=== PATIENT | female | born 1975 | race Caucasian/White ===

== ENCOUNTER → 2016-09-20 | Day surgery (SDC) | payer OTHER ==
[2016-09-19 10:12] VITALS: Ht 161.9 cm; Wt 79.5 kg
[~2016-09-20] VITALS: Ht 161.9 cm; Wt 79.5 kg
[~2016-09-20] MED LIST: ACET-1311 PO; BACTRIM PO; CHOL400C7 PO; CLON0.5T3 PO; FAMO20TA12 PO; FERR1TAB13 PO; FLUO20CA35 PO; FLUT0.15 NAE; INSDGIPEN SC; INSU100I2 SC; INSU1INJ23 SC; IPRA0.06 NAE; ISAV1CAP2 PO; LIDOCAINE HCL 2% 2 ML VIAL (20MG/ML) ONE; MAGN400T6 PO; METO25TA56 PO; MONT1TAB3 PO; MYCO250C26 PO; NRN600 PO; PANC6000 PO; PRED-301 PO; PROC1TAB5 PO; PROPOFOL IV EMULSION 10 MG/ML 20 ML VIAL IV ONE; RRALBUTNEB INH; SENN1TAB86 PO; SODIUM CHLORIDE 0.9% 500ML 500 ML IV ONE; TACR1CAP PO; TACR5CAP PO; TAPE1TAB10 PO; VLC450 PO; [UNRECOGNIZED DRUG - CODE] INH
--- NOTE | 2016-09-20 11:19 | Endo History and Physical ---
History & Physical Date of Service: September 20, 2016. Chief Complaint: aspiration Referring Physician: Phoebe Roman; Ese Jacobs History of Present Illness aspiration Past Surgical History Hx Cardiac Surgery: No Hx Internal Defibrillator: No Hx Pacemaker: No Hx Abdominal Surgery: Yes (RICHARD, PARTIAL HYSTER) Hx of Implantable Prosthesis: No Hx Post-Op Nausea and Vomiting: No Hx Cancer Surgery: No Hx Thoracic Surgery: Yes (BLT LUNG TRANSPLANT, MULTIPLE BRONCHOSCOPIES) Hx Orthopedic: Yes (LOW BACK SURGERY X2, MULTIPLE BACK INJECTIONS) Hx Urinary Tract Surgery: No Family History Polyp Social History Smoking Status: Never Smoker Hx Substance Use: No Hx Alcohol Use: No Allergies Coded Allergies: Amoxicillin (Verified Allergy, Intermediate, RASH, 09/19/16) Cephalexin (Verified Allergy, Intermediate, RASH, 09/19/16) Adhesives (Verified Adverse Reaction, Mild, SKIN IRRITATION, 09/19/16) Current Medications Reported Home Medications Medications Dose Route/Sig Max Daily Dose Days Date Category Dose Instructions Vitamin D 400 Iu (Cholecalciferol) 400 Unit Cap 400 Inter.unit PO QAM 09/19/16 Reported Cresemba (Isavuconazonium Sulfate) 186 Mg Cap 2 Cap PO QAM 09/19/16 Reported Nucynta Er (Tapentadol Hcl) 100 Mg Tab 1 Tab PO BID 09/19/16 Reported F/U WITH PAIN MANAGEMENT 09-19-16 Humulin N Kwikpen (Insulin Isophane (Human)) 100 Unit/Ml Inj 9 Units SC QAM 09/19/16 Reported Humalog Kwikpen (Insulin Lispro (Human)) 100 Unit/Ml Inj 1 Dose SC TIDM 09/19/16 Reported 20 UNITS AM 8-12 UNITS NOON 9 UNITS PM Lantus Solostar (Insulin Glargine) 100 Unit/Ml Inj 23 Units SC QAM 09/19/16 Reported Mag-Ox (Magnesium Oxide) 400 Mg Tab 2 Tabs PO NOON 09/19/16 Reported Singulair (Montelukast Sodium) 10 Mg Tab 10 Mg PO QPM 09/19/16 Reported Ipratropium [place] (Ipratropium [place] (Nasal)) 0.06 % Spr 2 Sprays SUKHJINDER BID 09/19/16 Reported Flonase Allergy Relief (Fluticasone Propionate (Nasal)) 50 Mcg/Act Spr 2 Sprays SUKHJINDER BID 09/19/16 Reported Compazine (Prochlorperazine Maleate) 10 Mg Tab 10 Mg PO Q6H PRN 09/19/16 Reported Abelcet (Amphotericin B) 5 Mg/Ml Susp 5 Ml INH BID 09/19/16 Reported Albuterol Sulfate (Albuterol Sulf) 2.5 Mg/0.5 Ml Nebu 1 Dose INH BID 09/19/16 Reported Klonopin (Clonazepam) 0.5 Mg Tab 0.5 Tab PO BID 09/19/16 Reported Sennalax-S (Sennosides-Docusate Sodium) 1 Tab Tab 2 Tab PO HS 09/19/16 Reported Kp Ferrous Sulfate (Ferrous Sulfate) 325 Mg Tab 1 Tab PO QAM 09/19/16 Reported Valcyte (Valganciclovir) 450 Mg Tab 2 Tabs PO QAM 09/19/16 Reported Gabapentin 600 Mg Tab 1 Tab PO TID 09/19/16 Reported Lopressor (Metoprolol Tartrate) 25 Mg Tab 0.25 Tab PO BID 09/19/16 Reported Prednisone 5 Mg Tab 3 Tabs PO QAM 09/19/16 Reported [Bactrim] Unknown Strength Unknown Dose PO MWF 09/19/16 Reported Famotidine 20 Mg Tab 1 Tab PO BID 09/19/16 Reported Prograf (Tacrolimus) 5 Mg Cap 5 Mg PO BID 09/19/16 Reported Prograf (Tacrolimus) 1 Mg Cap 4 Tabs PO BID 09/19/16 Reported Tylenol (Acetaminophen) 325 Mg Tab 650 Mg PO Q4H PRN 09/19/16 Reported Cellcept (Mycophenolate Mofetil) 250 Mg Cap 3 Cap PO BID 09/19/16 Reported Prozac (Fluoxetine HCl) 20 Mg Cap 2 Tabs PO QAM 09/19/16 Reported Creon (Pancrelipase (Lipase-Protease-) 1 Cap Cap 2 Cap PO TID 09/19/16 Reported Vital Signs Weight (Kilograms): 79.55 Height (Feet): 5 Height (Inches): 3.75 Physical Exam General Appearance: WD/WN, no apparent distress Assessment and Plan EGD with DUMONT today
--- NOTE | 2016-09-20 11:43 | GI REPORT ---
Procedure Date: 09/20/2016 10:58 AM Procedure: Upper GI endoscopy Indications: Esophageal reflux symptoms that persist despite appropriate therapy; CF s/p bilateral lung transplant; recent drop in PFT's; UGI with high risk for aspiration; not currently on any medication for GERD Medicines: Monitored Anesthesia Care Complications: No immediate complications. Estimated blood loss: None. Estimated Blood Loss: Estimated blood loss: none. Procedure: Pre-Anesthesia Assessment: - Prior to the procedure, a History and Physical was performed, and patient medications, allergies and sensitivities were reviewed. The patient's tolerance of previous anesthesia was reviewed. - The risks and benefits of the procedure and the sedation options and risks were discussed with the patient. All questions were answered and informed consent was obtained. - Patient identification and proposed procedure were verified prior to the procedure by the physician and the nurse. The procedure was verified in the pre-procedure area in the procedure room. - Mental Status Examination: alert and oriented. Airway Examination: normal oropharyngeal airway and neck mobility. Respiratory Examination: clear to auscultation. CV Examination: normal. Abdominal Examination: bowel sounds present, abdomen soft and non-tender, no masses or organomegaly noted. - ASA Grade Assessment: III - A patient with severe systemic disease. After obtaining informed consent, the endoscope was passed under direct vision. Throughout the procedure, the patient's blood pressure, pulse, and oxygen saturations were monitored continuously. The Scope was introduced through the mouth, and advanced to the second part of duodenum. The upper GI endoscopy was accomplished without difficulty. The patient tolerated the procedure well. Findings: The examined esophagus was normal. The DUMONT capsule with delivery system was introduced through the mouth and advanced into the esophagus, such that the DUMONT pH capsule was positioned 32 cm from the incisors, which was 6 cm proximal to the EG junction. Suction was applied to the well of the DUMONT pH capsule to suck in the adjacent mucosa of the esophagus using the external vacuum pump set at a minimum vacuum pressure of 550 mmHg for 60 seconds. The DUMONT pH capsule was then deployed by depressing the plunger on top of the handle to advance the locking pin into the mucosa, thereby attaching the capsule to the esophagus. The plunger was then rotated a quarter turn clockwise to release the capsule from the delivery system. The delivery system was then withdrawn. Endoscopy was utilized for probe placement and diagnostic evaluation. The stomach was normal. The examined duodenum was normal. Impression: - Normal esophagus. - Normal stomach. - Normal examined duodenum. - The DUMONT pH capsule was positioned 32 cm from the naris, which was 6 cm proximal to the EG junction. Recommendation: - Follow DUMONT instructions. Report to follow. - Return to referring physician as previously scheduled. - Discharge patient to home. Daphne Estrada D.O. Daphne Estrada, 09/20/2016 11:42:42 AM This report has been signed electronically. Note Initiated On: 09/20/2016 10:58 AM I attest to the content of the Intraoperative Record and orders documented therein, exceptions below
--- NOTE | 2016-09-20 11:45 | Discharge Instructions ---
Endoscopy Patient Instructions Date / Procedure(s) Performed September 20, 2016. EGD Allergy Information Coded Allergies: Amoxicillin (Verified Allergy, Intermediate, RASH, 09/19/16) Cephalexin (Verified Allergy, Intermediate, RASH, 09/19/16) Adhesives (Verified Adverse Reaction, Mild, SKIN IRRITATION, 09/19/16) Discharge Date / Findings September 20, 2016. normal EGD; DUMONT placed Medication Instructions Restart Stopped Medication(s): OK to resume all medications as above Provider Instructions Activity Restrictions - No exercising or heavy lifting for 24 hours. - Do not drink alcohol the day of the procedure. - Do not drive a car or operate machinery until the day after the procedure. - Do not make any important decisions or sign important papers in 24 hours after the procedure. Following Day: - Return to full activity which may include returning to work/school. Diet Start your diet with liquids and light foods (jello, soup, juice, toast). Then eat your usual diet if not nauseated. Treatment For Common After Affects For mild abdominal pain, bloating, or excessive gas: - Rest - Eat lightly - Lie on right side Follow-Up Information Follow-up with Phoebe JANSEN as scheduled Anesthesia Information What You Should Know You have had a procedure that required some medicine to reduce anxiety and discomfort. This treatment is called moderate sedation. After receiving the treatment, you may be sleepy, but you will be able to breathe on your own. The effects of the treatment may last for several hours. Follow these instructions along with Activity/Diet recommendations noted above: * Do NOT do anything where dizziness or clumsiness would be dangerous. * Rest quietly at home today, then you can be up and about tomorrow. * Have a responsible person stay with you the rest of today. * You may have had an I.V. today. If so, you may take the dressing off later today. Recommendations Call your doctor if: * Trouble breathing * Continuous vomiting for more than 24 hours * Temperature above 101 degrees * Severe abdominal pain or bloating * Pain not relieved by pain medicine ordered * There is increased drainage or redness from any incision * A large amount of rectal bleeding greater than 2-3 tablespoons. (If you had a polyp/s removed or have hemorrhoids, a small amount of blood - from the rectum is to be expected.) * You have any unanswered questions or concerns. IN THE EVENT OF A SERIOUS EMERGENCY, GO TO THE NEAREST EMERGENCY ROOM Your discharge instructions were prepared by provider Daphne Estrada. Patient Instructions Signature Page [facility] Patient (or Guardian) Signature/Date: I have read and understand the instructions given to me by my caregivers. Caregiver/RN/Doctor Signature/Date: The above-named patient and/or guardian has received patient instructions on this date. + Original Patient Signature Page (only) stays with chart. Please make copy for patient.
[2016-09-20 12:12] VITALS: BP 126/82; PULSE 66; O2SAT 98
--- NOTE | 2016-09-20 12:14 | Anesthesiology Progress Note ---
Anesthesia Post Op Note Date & Time September 20, 2016 at 12:14 Vital Signs Pain Intensity: 0 Vital Signs Past 12 Hours Date Time Temp Pulse Resp B/P Pulse Ox O2 Delivery O2 Flow Rate FiO2 09/20/16 11:57 62 20 113/67 96 Room Air 09/20/16 11:42 66 24 98/51 96 Room Air 09/20/16 11:05 36.7 62 16 126/67 97 Room Air Notes Mental Status: alert / awake / arousable, participated in evaluation Pt Amnestic to Procedure: Yes Nausea / Vomiting: adequately controlled Pain: adequately controlled Airway Patency, RR, SpO2: stable & adequate BP & HR: stable & adequate Hydration State: stable & adequate Anesthetic Complications: no major complications apparent
== END | disposition home or self-care (01) ==
LOC: C.GI 10:23
PROVIDERS: ATTEND Internal Medicine
DX: K21.9 Gastro-esophageal reflux disease without esophagitis (principal); Z90.49 Acquired absence of other specified parts of digestive tract; Z90.710 Acquired absence of both cervix and uterus; Z94.2 Lung transplant status